=== PATIENT | female | born 1960 | race Caucasian/White ===

== ENCOUNTER → 2017-11-06 | Outpatient (CLI) | payer OTHER ==
[~2017-11-06] MED LIST: CHOL1CAP24 PO; EZET10 PO; FOLI1TAB6 PO; MELO15TA20 PO; METH2.5T PO; PRAV40TA2 PO; SERT-129 PO; VITA-141 PO
[2017-11-06 14:09] LABS: AUTOMATED NEUTROPHIL # 4.6 TH/MM3 (1.8-7.7); BASOPHIL % 0.7 % (0.0-2.0); EOSINOPHIL # 0.1 TH/MM3 (0-0.4); HEMATOCRIT 37.2 % (35.0-46.0); HEMOGLOBIN 12.5 GM/DL (11.6-15.3); LYMPH % 22.1 % (9.0-44.0); LYMPHOCYTE # 1.5 TH/MM3 (1.0-4.8); MEAN CELL VOLUME 86.4 FL (80.0-100.0); MEAN CORPUSCULAR HGB CONC 33.6 % (32.0-36.0); MEAN PLATELET VOLUME 7.8 FL (7.0-11.0); MONO % 9.2 % (0.0-8.0); MONOCYTE # 0.6 TH/MM3 (0-0.9); PLATELET COUNT 296 TH/MM3 (150-450); RED CELL DISTRIBUTION WIDTH 14.7 % (11.6-17.2)
[2017-11-06 14:12] LABS: BILIRUBIN, URINE NEG (NEG); BLOOD, URINE NEG (NEG); GLUCOSE,URINE NEG (NEG); KETONE, URINE NEG (NEG); MUCUS URINE FEW /lpf (OCC); NITRITE,URINE NEG (NEG); SQUAMOUS EPITHELIAL CELL URINE 1 /hpf (0-5); URINE COLOR LIGHT-YELLOW (YELLW/STRAW); URINE LEUKOCYTE ESTERASE NEG (NEG)
[2017-11-06 14:17] LABS: PROTHROMBIN TIME - PATIENT 9.9 SEC (9.8-11.6)
--- NOTE | 2017-11-06 14:30 | RADRPT ---
EXAM DATE/TIME: 11/06/2017 13:57 [facility] COMPARISON: No previous studies available for comparison. INDICATIONS : Evaluate for pneumonia, pneumothorax or communicable disease. Pre op for cervical spine surgery MEDICAL HISTORY : None. SURGICAL HISTORY : None. ENCOUNTER: Initial ACUITY: 1 day PAIN SCORE: 0/10 LOCATION: Bilateral chest FINDINGS: PA and lateral views of the chest demonstrate the lungs to be symmetrically aerated without evidence of mass, infiltrate or effusion. The cardiomediastinal contours are unremarkable. Osseous structure s demonstrate mild degenerative changes in the thoracic spine. CONCLUSION: 1. No acute cardiopulmonary findings. Bruce Espinoza MD on November 06, 2017 at 14:16 Board Certified Radiologist. This report was verified electronically.
[2017-11-06 14:31] LABS: ALBUMIN 3.8 GM/DL (3.4-5.0); AST (GOT) 27 U/L (15-37); BICARBONATE 30.5 MEQ/L (21.0-32.0); BLOOD UREA NITROGEN 16 MG/DL (7-18); CALCIUM 9.4 MG/DL (8.5-10.1); CHLORIDE 107 MEQ/L (98-107); CREATININE 0.92 MG/DL (0.50-1.00); GLOMERULAR FILTRATION RATE 62 ML/MIN (>89); GLUCOSE,FASTING 95 MG/DL (74-99); SODIUM (NA) 141 MEQ/L (136-145)
[2017-11-06 14:32] LABS: ALT (GPT) 31 U/L (10-53)
[2017-11-06 14:34] LABS: ALKALINE PHOSPHATASE 70 U/L (45-117); TOTAL BILIRUBIN ADULT 0.4 MG/DL (0.2-1.0); TOTAL PROTEIN 7.8 GM/DL (6.4-8.2)
--- NOTE | 2017-11-11 09:42 | MH ---
cc: Ru Hsu MD, James MD Tsai, MD De La Garza, MD Simon MD DATE OF ADMISSION: 11/11/2017 ADMISSION DIAGNOSIS: Cervical degenerative joint disease. HISTORY OF PRESENT ILLNESS: This is a 57-year-old female who presented to us for an evaluation of chronic neck that is progressively getting worse over the last year. She states initially she was having significant restricted range of motion and presented to her primary care physician, who did an injection of steroids. She states after about a month or so, she had some improvement. She states the pain radiates into the right shoulder, but not the upper extremities. She has not had any physical therapy. She has seen a chiropractor in the past for this, but she did not get much relief. She denies any unsteadiness with walking. She denies any urinary incontinence. She states that her upper extremities feel weak. She is not on any pain management and she is not interested in pain management. She has numbness in her hands intermittently and her physician at the [facility] felt that she had carpal tunnel, though she states that it involves her whole hand and fingers. Her symptoms have progressed and they are effecting her quality of life and activities of daily living. She is retried, but states that she cannot enjoy her [place] [facility] since her activity seems to aggravate her pain. She also related chronic low back pain and, at this point, she wants the neck pain and radiation into the right scapula/shoulder area to be addressed. She also suffers from rheumatoid arthritis and has chronic stiffness in her joints in upper and lower extremities associated with that. PAST MEDICAL HISTORY: Positive for rheumatoid arthritis, hyperlipidemia, sleep apnea, depression, rectal cancer. PAST SURGICAL HISTORY: 1. Bladder surgery. 2. Breast reduction. 3. Tonsillectomy. 4. Removal of basal carcinoma on rectum. 5. Turbinate reduction surgery. CURRENT MEDICATIONS: Sertraline 100 milligrams daily, Zetia 10 milligrams daily, pravastatin 40 milligrams daily, vitamin E 400 International Units daily, Vitamin D daily, meloxicam 15 milligrams daily, this was held prior to surgical intervention, methotrexate 2.5 milligrams 7 tablets once a week, folic acid 400 micrograms 1 tablet every 6 days. ALLERGIES: SHE HAS NO KNOWN DRUG ALLERGIES. FAMILY HISTORY: Her father is at 80 years old, had cancer. Her mother is at 74 years old, unknown cause. Her brother is alive at 60 years old and another at 57 years old, in good health. Another brother is at 35 years old of suicide. She has a sister who is alive at 59 years old, in good health and another sister who is alive at 61 years old, in good health. SOCIAL HISTORY: She is . She has 1 child. She lives with her . She does not smoke, although previously smoked and quit in 1989. She does not drink alcohol. REVIEW OF SYSTEMS: CONSTITUTIONAL: She denies any fevers or chills. EARS, NOSE, THROAT: No pharyngitis, exudates or bloody drainage from her nose. CARDIOVASCULAR: She denies any chest pain or palpitations. RESPIRATORY: No cough or shortness of breath. GENITOURINARY: No dysuria or hematuria. MUSCULOSKELETAL: Positive for neck and low back pain. SKIN: No rashes or pruritus. NEUROLOGIC: No difficulty with speech or memory. GASTROINTESTINAL: No nausea, vomiting, abdominal pain. PSYCHIATRIC: No anxiety, positive for depression symptoms. ENDOCRINE: No polyuria or polydipsia. HEMATOLOGIC: No bruising or bleeding tendencies. PHYSICAL EXAMINATION: HEAD: Normocephalic, atraumatic. NECK: Supple. No carotid bruits on auscultation. LUNGS: Clear to auscultation bilaterally. CARDIOVASCULAR: Regular rate and rhythm. Normal S1, S2. ABDOMEN: Soft, nontender, positive bowel sounds. SKIN: Reveals no cyanosis or erythema. MUSCULOSKELETAL: She has 5/5 strength in the upper and lower extremities. NEUROLOGIC: She is awake, alert and oriented. Cranial nerves 2-12 are grossly intact. Her speech is fluent. Comprehension is good. Reflexes are brisk in the lower extremities, 2+ in the upper extremities. DATA REVIEWED: Reviewed MRI of the cervical spine from 07/10/2017, which reveals a herniated disk at the C5-C6 level that is central, with associated ligamentum flavum hypertrophy, with moderate spinal and foraminal stenosis. She also has associated osteophytes at this level. She also has a degree of osteophytes and disk protrusion at the C4-C5 and C6-C7 levels, with mild spinal stenosis. IMPRESSION: This is a 57-year-old female with chronic history of neck pain that radiates into the right shoulder, from a C5-C6 disk herniation, with associated osteophytes and degenerative changes. She has a lesser degree of disk protrusions and degenerative changes at other levels. She has undergone conservative management without any relief and progressive symptoms. PLAN: We have discussed treatment options with the patient and her daughter, wished to continue conservative treatment measures with physical therapy and pain management versus surgical intervention. We have discussed a C5-C6 anterior microdiscectomy with fusion versus artificial disk replacement. The patient is preferring that we proceed with an artificial disk, although she states that if this is not possible during the surgery, then she gives permission for us to perform an anterior cervical fusion with interbody cage and cervical plate placement at this level. We have discussed both procedures, as well as the risks, benefits and alternatives, recovery time in great detail with the patient. We have discussed risks involved with surgery include, but not limited to, bleeding, infection, muscle weakness, voice hoarseness, difficulty swallowing, heart attack, stroke, blood clots, scar tissue formation, as well as nonfusion if she undergoes the fusion procedure. There is also risk of any instrumentation failure with either procedure. Again, we will proceed with an anterior C5-C6 artificial disk replacement and if this is not feasible during surgery, rather than closing, the patient has given permission to proceed with a C5-C6 anterior cervical fusion. Dictated by VIDA Henderson MD JONI Gambino/PATRICIA , 06:19 PM , 07:11 PM
== END ==
LOC: CPRE 12:58
PROVIDERS: ATTEND Neurological Surgery
DX: Z01.812 Encounter for preprocedural laboratory examination (principal); Z01.818 Encounter for other preprocedural examination; Z79.01 Long term (current) use of anticoagulants
CPT/HCPCS: 36415; 71046; 80053; 81001; 85025; 85610; 85730; 87640; 87641

== ENCOUNTER 2017-11-11 06:13 | Observation (INO) | payer OTHER ==
[~2017-11-11] VITALS: Ht 152.4 cm; Wt 79.5 kg
[2017-11-11] MEDS ORDERED: SODIUM CHLORID 0.9% 500 ML IV PRN (06:45)
[2017-11-11] MEDS ORDERED: METOPROLOL TARTRATE 25 MG TAB PO PRN (06:45)
[2017-11-11] MEDS ORDERED: VANCOMYCIN 1000 MG/NS 250 ML ON-CALL IV SCH ×2 (06:45)
[2017-11-11] MEDS ORDERED: LACTATED RINGER'S 1000 ML IV PRN (06:45)
[2017-11-11] MEDS ORDERED: CHLORHEXIDINE GLUCONATE 2 % 1 PACK (2 CLOTHS) TOPICAL PRN (06:45)
[2017-11-11] MEDS ORDERED: POVIDONE IODINE 5% (ANTISEPSIS KIT) 4 APPLICATIONS EACH NARE PRN (06:45)
[2017-11-11] MEDS ORDERED: SODIUM CHLOR 0.9% 1000 ML INJ 1,000 ML IV SCH (06:45)
[2017-11-11] MEDS ORDERED: RESP: ALBUTEROL 2.5 MG/IPRATROPIUM 0.5 MG NEB (SCH) ONE (07:20)
[2017-11-11] MEDS ORDERED: RESP: ALBUTEROL 2.5 MG/IPRATROPIUM 0.5 MG NEB (SCH) NEB ONE (07:30)
[2017-11-11] MEDS ORDERED: MIDAZOLAM HCL 2 MG/2 ML VIAL IV PUSH SCH (07:30)
[2017-11-11] MEDS ORDERED: VANCOMYCIN HCL 1000 MG VIAL ONE (07:47)
[2017-11-11] MEDS ORDERED: GELFOAM SIZE 100 ONE (07:47)
[2017-11-11] MEDS ORDERED: THROMBIN (TOPICAL) 5,000 UNIT VIAL ONE (07:47)
[2017-11-11] MEDS ORDERED: BUPIVACAINE/EPINEPHRINE 0.5% PF 30 ML VIAL ONE (07:47)
[2017-11-11] MEDS ORDERED: SUFentanil INJ 250 MCG/5 ML AMP ONE (08:07)
[2017-11-11] MEDS ORDERED: PROPOFOL 500 MG/50 ML INJ 100 ML ONE (08:07)
[2017-11-11] MEDS ORDERED: CHLORHEXIDINE GLUCONATE 2 % 1 PACK (2 CLOTHS) TOPICAL SCH (09:00)
[2017-11-11] MEDS ORDERED: ONDANSETRON HCL 4 MG/2 ML VIAL IV ONE (12:00)
[2017-11-11] MEDS ORDERED: DEXAMETHASONE SOD PHOS 4 MG/ML VIAL IV ONE (12:00)
[2017-11-11] MEDS ORDERED: LACTATED RINGER'S 1000 ML INJ 1,000 ML IV ONE (12:00)
[2017-11-11] MEDS ORDERED: PROPOFOL 200 MG/20 ML AMP IV ONE (12:00)
[2017-11-11] MEDS ORDERED: NEOSTIGMINE 5 MG/5 ML SYRINGE IV PUSH ONE (12:00)
[2017-11-11] MEDS ORDERED: GLYCOPYRROLATE 1 MG/5 ML SYRINGE IV PUSH ONE (12:00)
[2017-11-11] MEDS ORDERED: ROCURONIUM INJ 50 MG/5 ML SYRINGE IV PUSH ONE (12:00)
[2017-11-11] MEDS ORDERED: SODIUM CHLOR 0.9% 250 ML INJ 250 ML IV ONE (12:00)
[2017-11-11] MEDS ORDERED: ceFAZolin INJ 1,000 MG VIAL IV ONE ×2 (12:00→14:48)
[2017-11-11] MEDS ORDERED: LIDOCAINE HCL 1% PF 5 ML SYRINGE OTHER ONE (12:00)
[2017-11-11] MEDS ORDERED: ePHEDrine/NS 25 MG/5 ML SYRINGE IV ONE (12:00)
[2017-11-11] MEDS ORDERED: NS + KCL 20 MEQ INJ 1,000 ML IV SCH (16:16)
[2017-11-11] MEDS ORDERED: DO NOT ADM ANY ANTICOAGULANT DRUGS PRN (16:24)
[2017-11-11] MEDS ORDERED: ONDANSETRON HCL 4 MG/2 ML VIAL IV PUSH PRN (16:30)
[2017-11-11] MEDS ORDERED: ZOLPIDEM TARTRATE 5 MG TAB PO PRN (16:30)
[2017-11-11] MEDS ORDERED: cloNIDine HCL 0.1 MG TAB PO PRN (16:30)
[2017-11-11] MEDS ORDERED: PROMETHAZINE INJ 25 MG/ML VIAL IM PRN (16:30)
[2017-11-11] MEDS ORDERED: RESP: ALBUTEROL 2.5 MG/3 ML NEB (PRN) NEB (16:30)
[2017-11-11] MEDS ORDERED: MENTHOL LOZENGE BUCCAL PRN (16:30)
[2017-11-11] MEDS ORDERED: SENNOSIDES 8.6 MG TAB PO PRN (16:30)
[2017-11-11] MEDS ORDERED: BISACODYL 10 MG SUPP RECTAL PRN (16:30)
[2017-11-11] MEDS ORDERED: LACTULOSE SYRUP 20 GM/30 ML CUP PO PRN (16:30)
[2017-11-11] MEDS ORDERED: SODIUM CHLORIDE 0.9% FLUSH 10 ML FLUSH IV FLUSH PRN (16:30)
[2017-11-11] MEDS ORDERED: MAGNESIUM HYDROXIDE SUSP 30 ML CUP PO PRN (16:30)
[2017-11-11] MEDS ORDERED: ALUMINUM/MAGNESIUM/SIMETH 30 ML CUP PO PRN (16:30)
[2017-11-11] MEDS ORDERED: ACETAMINOPHEN 325 MG TAB PO PRN (16:30)
--- NOTE | 2017-11-11 16:30 | PD.OP ---
Stephon Jacob MD Operative Report Date of Surgery: Nov 11, 2017 Preoperative Diagnosis: Cervical C5-6 disc herniation with spinal/foraminal stenosis and spinal cord compression; intractable neck pain with radiculopathy Postoperative Diagnosis: Same Procedure: Anterior cervical C5-6 microdiscectomy with disc arthroplasty/artificial disc replacement; microsurgical technique Anesthesia: Gen. endotracheal by Melida lorenzo Surgeon: Ru Hsu M.D. Drum Drier Operator(s): Keisha Narvaez Operation and Findings: Following administration of general endotracheal anesthesia, the patient received a gram of Ancef and Decadron 10 mg intravenously. Sequential compression devices were placed in supine position on a Uziel table and all pressure points adequately padded. The head secured in a donut and anterior cervical region then shaved and prepped with Chloraprep and sterilely draped with Ioban along with the usual sterile draping. A transverse skin incision on the left side of the neck was then made after infiltrating the skin with 0.5% Marcaine with epinephrine solution extending down through the platysma. At the anterior border of the sternocleidomastoid further dissection was undertaken developing a plane between the carotid sheath laterally and the trachea esophagus medially. The prevertebral fascia was exposed and dissected out. The medial attachments of the longus colli muscles were detached and a self- retaining retractor used for exposure. The C5-6 disc space was localized with a marking the disc space and using lateral fluoroscopy. Oxford distraction screws 14 mm length were placed one in the C5 and one in the C6 body interbody distraction and exposure. There were anterior osteophytes noted at the C5-6 level and the osteophytes were resected with a Leksell and annulus incised with a 15 blade and further dissection undertaken using microtechnique with microscope magnification. Diskectomy was undertaken with pituitaries and the endplate cartilage removal with a curette. And more posteriorly there was disk osteophyte complex compressing the thecal sac along with a significant uncovertebral joint hypertrophy with foraminal stenosis which was decompressed along with removal of the herniated disc and posterior longitudinal ligaments at both levels. The foramen was decompressed bilaterally using a Kerrison's and palpation with a nerve hook, the exiting nerve roots were felt to be free. The area was then copiously irrigated. The interspace was distracted and MobiC artificial disc trials placed and the disc space until the using fluoroscopy. MobiC disc 6 mm in height was then placed in the C5-6 interspace under fluoroscopy guidance. AP and lateral images confirmed good placement of the construct. Oxford distraction pins were removed and the holes plugged with bone wax for hemostasis. The retractor was then removed. Muscular bleeding points were cauterized with bipolar cautery and Gelfoam was then also used for hemostasis which was removed. The platysma was then approximated using 3-0 Vicryl interrupted stitches and 3-0 Vicryl subcuticular stitch also placed in an interrupted fashion, and final skin closure was with Mastisol and Steri- Strips. Sterile dressing was then applied. The patient was then extubated and taken to the recovery room. There are no intraoperative complications and all sponge and needle counts were correct at the end of procedure. Estimated blood loss was about 30 cc. The patient did undergo intraoperative neurologic monitoring which remained stable throughout the surgery. Ru Hsu MD Nov 11, 2017 16:30
[2017-11-11] MEDS ORDERED: *morphine SULFATE 10 MG/ML PERIprocedure ONLY ONE (16:35)
--- NOTE | 2017-11-11 17:00 | RADRPT ---
EXAM DATE/TIME: 11/11/2017 13:45 [facility] COMPARISON: No previous studies available for comparison. INDICATIONS : C5-6 artificial disc placement. MEDICAL HISTORY : None. SURGICAL HISTORY : None. ENCOUNTER: Subsequent ACUITY: 1 day PAIN SCORE: Non-responsive. LOCATION: C5-6 FINDINGS: 2 spot fluoroscopic images obtained in the operating room during a procedure demonstrates artificial disc at one of the cervical levels that appears to represent C5-C6 from the anatomic landmarks provid ed. No acute abnormality is seen. CONCLUSION: Artificial disc appears to be at the C5-C6 level. No acute finding is seen. Chencho Galindo MD on November 11, 2017 at 16:58 Board Certified Radiologist. This report was verified electronically.
[2017-11-11] MEDS: MORPHINE SULFATE 4 MG/ML INJ IV PUSH PRN ×2 (18:12→22:32)
[2017-11-11 18:24] VITALS: BP 110/59; PULSE 71; RESP 16; TEMP 97.3; O2SAT 97
[2017-11-11 20:00] VITALS: BP 102/56; PULSE 71; RESP 18; TEMP 97.5; O2SAT 96
[2017-11-11] MEDS: DOCUSATE SODIUM 50 MG/SENNA 8.6 MG TAB PO SCH (20:18)
[2017-11-11] MEDS: DEXAMETHASONE SOD PHOS 4 MG/ML VIAL IV PUSH SCH (20:18)
[2017-11-11] MEDS: SODIUM CHLORIDE 0.9% FLUSH 10 ML FLUSH IV FLUSH SCH (21:00)
[2017-11-11] MEDS ORDERED: EZETIMIBE 10 MG TAB PO SCH (21:00)
[2017-11-11] MEDS ORDERED: FOLIC ACID 1 MG TAB PO SCH (21:00)
[2017-11-11] MEDS ORDERED: SERTRALINE HCL 100 MG TAB PO SCH (21:00)
[2017-11-11] MEDS ORDERED: PRAVASTATIN SOD 40 MG TAB PO SCH (21:00)
[2017-11-11] MEDS ORDERED: MELOXICAM 15 MG TAB PO SCH (21:00)
[2017-11-12] VITALS: BP 109/75; PULSE 77; RESP 18; TEMP 97.6; O2SAT 90
[2017-11-12] MEDS: DEXAMETHASONE SOD PHOS 4 MG/ML VIAL IV PUSH SCH ×2 (02:26→09:10)
[2017-11-12 04:00] VITALS: BP 113/65; PULSE 72; RESP 18; TEMP 98.2; O2SAT 92
[2017-11-12] MEDS: CYCLOBENZAPRINE HCL 10 MG TAB PO PRN ×2 (04:17→12:35)
[2017-11-12 08:18] VITALS: BP 128/57; PULSE 66; RESP 18; TEMP 97.6; O2SAT 95
[2017-11-12] MEDS ORDERED: PANTOPRAZOLE SOD 40 MG DELAYED RELEASE TAB PO SCH (09:00)
[2017-11-12] MEDS: DOCUSATE SODIUM 50 MG/SENNA 8.6 MG TAB PO SCH (09:10)
[2017-11-12] MEDS: SODIUM CHLORIDE 0.9% FLUSH 10 ML FLUSH IV FLUSH SCH (09:10)
[2017-11-12 09:23] VITALS: O2SAT 98
--- NOTE | 2017-11-12 11:48 | HHI.NSPN ---
History Chief Complaint: Muscle spasms neck. Interval History 11/12/17: Pt awake and alert. Follows commands well. No radiculopathy in UEs. Tolerated diet well. Review of Systems General: Negative for: fever, chills, insomnia Respiratory: Negative for: shortness of breath, cough, sputum Cardiovascular: Negative for: chest pain Gastrointestinal: Positive for: nausea (related to Morphine.), Negative for: vomitting, diarrhea, constipation Exam Results Vital Signs Date Time Temp Pulse Resp B/P (MAP) Pulse Ox O2 Delivery O2 Flow Rate FiO2 11/12/17 09:23 98 21 11/12/17 08:18 97.6 66 18 128/57 (80) 11/11/17 17:00 Nasal Cannula 3 Intake and Output 11/12/17 11/12/17 11/13/17 08:00 16:00 00:00 Intake Total 220 ml Balance 220 ml Physical Examination General: Pt resting comfortably in bed in NAD. Resp: CTA bilaterally Heart: NSR no murmurs Abd: Soft positive bs Skin: No cyanosis or erythema. Incision clean and dry New bandage applied. Muscle: Moves all 4 extremities with good strength. Ambulates well. Neuro: Pt awake and alert. Follows commands well. Speech clear and appropriate. Lab, Micro, Other Results Last Impressions Cervical Spine X-Ray 11/11/17 0000 Signed Impressions: Service Date/Time: Saturday, November 11, 2017 13:45 - CONCLUSION: Artificial disc appears to be at the C5-C6 level. No acute finding is seen. Chencho Galindo MD Medical Decision Making Impression and Plan A: 57 y/o FM s/p C5/C6 anterior cervical C5-6 microdiscectomy with disc arthroplasty/artificial disc replacement P: D/C home today. Discussed restrictions Froy Chase Nov 12, 2017 11:48 am
[2017-11-12] MEDS ORDERED: CYCL10TA PO (11:53)
[2017-11-12 12:16] VITALS: BP 104/53; PULSE 72; RESP 20; TEMP 98.2; O2SAT 91
[2017-11-15] MEDS ORDERED: CHOLECALCIFEROL (VIT D3) 5000 UNIT CAP PO SCH (16:00)
== END 2017-11-12 14:00 | disposition home or self-care (01) ==
LOC: HSDC 06:13 → N05A 18:31 → HSDC 18:31
PROVIDERS: ADMIT Neurological Surgery; ATTEND Neurological Surgery
DX: M50.122 Cervical disc disorder at C5-C6 level with radiculopathy (principal); M48.02 Spinal stenosis, cervical region; M25.78 Osteophyte, vertebrae
CPT/HCPCS: 00600; 22856; 63001; 72040; 76000; 94150; 94664; 96365; 96366; 96375; 96376; C1889; G0378; J0690; J1100; J2270; J2405; J2710; J3370; J3480; J7050; J7120